=== PATIENT | female | born 1975 | race American Indian/Alaskan Native ===

== ENCOUNTER 2018-06-28 07:40 | Emergency (ER) | payer MEDICAID, OTHER ==
[2018-06-28 07:46] VITALS: BMI 32.5
[2018-06-28] MEDS ORDERED: Sodium Chloride 0.9% 1,000 ML IV STA (08:13)
[2018-06-28 08:49] LABS: EOS % 0.3 % (0.0-4.0); RED CELL DISTRIBUTION WIDTH 13.5 % (11.5-14.5); WHITE BLOOD COUNT 3.5 K/uL (4.8-10.8)
[2018-06-28 08:54] LABS: BASO % 0.3 % (0.0-2.0); HEMOGLOBIN 11.7 g/dL (12.0-16.0); LYMPH # 0.6 K/uL (1.0-4.3); LYMPH % 16.4 % (20.0-40.0); MEAN CELL VOLUME 89.3 fl (81.0-99.0); MEAN CORPUSCULAR HEMOGLOBIN 29.3 pg (27.0-31.0); MEAN CORPUSCULAR HGB CONC 32.9 g/dL (33.0-37.0); MEAN PLATELET VOLUME 7.6 fl (7.2-11.7); MONO # 0.3 K/uL (0.0-0.8); NEUT # 2.5 K/uL (1.8-7.0); NRBC % 0.1 % (0.0-0.0)
[2018-06-28 09:12] LABS: ALBUMIN 3.6 g/dL (3.5-5.0); ALT/SGPT 35 U/L (9-52); AST/SGOT 44 U/L (14-36); BLOOD UREA NITROGEN 14 mg/dl (7-17); CALCIUM 9.5 mg/dL (8.4-10.2); GFR NON-AFRICAN AMERICAN > 60
--- NOTE | 2018-06-28 09:19 | ED PDOC ---
HPI: General Adult Time Seen by Provider: 06/28/18 07:47 Chief Complaint (Nursing): Abdominal Pain Chief Complaint (Provider): Headache and Abdominal Pain History Per: Patient History/Exam Limitations: no limitations Onset/Duration Of Symptoms: Days (1) Current Symptoms Are (Timing): Still Present Additional Complaint(s): 43 year old female with history of migraines, asthma and fibromyalgia presents to the ED for an evaluation of headache and abdominal cramping onset yesterday. Patient states she had a couple of soft, non-bloody and dark brown bowel movements. Last night, she had one episode of non-bloody vomit prompting to come to the ED for further evaluation today. The headache is throbbing with light sensitivity across the taoism regions associated with nausea. Otherwise, she denies chest pain, shortness of breath or any urinary symptoms. Patient also re ports [place] Of note: her LNMP was 2 weeks ago; patient states it was heavy as regular. PMD: [facility] Past Medical History Reviewed: Historical Data, Nursing Documentation, Vital Signs Vital Signs: Last Vital Signs Temp 98.7 F 06/28/18 07:46 Pulse 88 06/28/18 07:46 Resp 15 06/28/18 07:46 BP 124/66 06/28/18 07:46 Pulse Ox 96 06/28/18 07:46 - Medical History PMH: Asthma, Fibromyalgia, Migraine - Surgical History Surgical History: No Surg Hx - Family History Family History: States: Unknown Family Hx - Social History Current smoker - smoking cessation education provided: No Alcohol: None Drugs: Denies - Immunization History Hx Tetanus Toxoid Vaccination: No Hx Influenza Vaccination: No Hx Pneumococcal Vaccination: No - Home Medications Home Medications: Ambulatory Orders Medication Instructions Recorded Acetaminophen [Tylenol 325mg tab] 325 mg PO Q6 06/19/18 Albuterol HFA [Ventolin HFA 90 2 puff IH [id number] 06/19/18 mcg/actuation (8 g)] Acetaminophen 650 mg PO Q6H PRN #30 tablet 06/28/18 Ondansetron [Zofran] 4 mg PO Q8H #9 tab 06/28/18 - Allergies Allergies/Adverse Reactions: Allergies Allergy/AdvReac Type Severity Reaction Status Date / Time No Known Allergies Allergy Verified 06/19/18 04:43 Review of Systems ROS Statement: Except As Marked, All Systems Reviewed And Found Negative Constitutional: Negative for: Fever Cardiovascular: Negative for: Chest Pain Respiratory: Negative for: Shortness of Breath Gastrointestinal: Positive for: Nausea, Vomiting, Abdominal Pain, Other (couple of bowel movements) Genitourinary Female: Negative for: Dysuria, Frequency, Incontinence, Hematuria Neurological: Positive for: Headache Physical Exam - Reviewed Nursing Documentation Reviewed: Yes Vital Signs Reviewed: Yes - Physical Exam Appears: Positive for: Well, Non-toxic, No Acute Distress Head Exam: Positive for: ATRAUMATIC, NORMAL INSPECTION, NORMOCEPHALIC Skin: Positive for: Rash (chronic on neck area ) Eye Exam: Positive for: EOMI, Normal appearance, PERRL ENT: Positive for: Normal ENT Inspection, Other (dry tongue ) Neck: Positive for: Normal, Painless ROM, Supple. Negative for: Decreased ROM Cardiovascular/Chest: Positive for: Regular Rate, Rhythm. Negative for: Murmur Respiratory: Positive for: Normal Breath Sounds. Negative for: Respiratory Distress Gastrointestinal/Abdominal: Positive for: Tenderness (upper region ). Negative for: Distended, Rebound Back: Positive for: Normal Inspection Extremity: Positive for: Normal ROM. Negative for: Tenderness, Pedal Edema, Deformity Neurological/Psych: Positive for: Awake, Alert, Normal Tone, Oriented (x3) - Laboratory Results Result Diagrams: 06/28/18 08:44 06/28/18 08:44 Lab Results: Total Bilirubin 0.8 mg/dl (0.2-1.3) 06/28/18 08:44 AST 44 U/L (14-36) H 06/28/18 08:44 ALT 35 U/L (9-52) 06/28/18 08:44 Alkaline Phosphatase 75 U/L (38-126) 06/28/18 08:44 Total Protein 7.2 G/DL (6.3-8.2) 06/28/18 08:44 Albumin 3.6 g/dL (3.5-5.0) 06/28/18 08:44 Globulin 3.6 gm/dL (2.2-3.9) 06/28/18 08:44 Albumin/Globulin Ratio 1.0 (1.0-2.1) 06/28/18 08:44 - ECG O2 Sat by Pulse Oximetry: 96 (RA) Pulse Ox Interpretation: Normal - Progress Re-evaluation Time: 09:20 Condition: Re-examined, Improved Medical Decision Making Medical Decision Making: Time: 08:13 Impression: gastroenteritis, headache Plan: CMP ED urine (POC) ED urine dipstick (POC) CBC w/ differential Pepcid 20mg Normal Saline 999 mls/hr Toradol 30mg Zofran 4mg IV Insertion Reevaluation Scribe Attestation: Documented by Michelle Mckinley, acting as a scribe for Bailey Bonilla MD Provider Scribe Attestation: All medical record entries made by the Scribe were at my direction and personally dictated by me. I have reviewed the chart and agree that the record accurately reflects my personal performance of the history, physical exam, medical decision making, and the department course for this patient. I have also personally directed, reviewed, and agree with the discharge instructions and disposition. 9.20a - labs reviewed. Patient states her nausea and headache are both better. Will discharge with rx for ondansetron and acetaminophen Disposition - Clinical Impression Clinical Impression: Gastroenteritis - Patient ED Disposition Is Patient to be Admitted: No Doctor Will See Patient In The: Office Counseled Patient/Family Regarding: Diagnosis, Need For Followup, Rx Given - Disposition [facility]errals: [facility]Outside] [facility] [Outside] [facility] [Outside] Disposition: Routine/Home Disposition Time: 09:30 Condition: IMPROVED Prescriptions: Acetaminophen 650 mg PO Q6H PRN #30 tablet PRN Reason: Pain, Moderate (4-7) Ondansetron [Zofran] 4 mg PO Q8H #9 tab Instructions: Gastroenteritis (ED) Forms: [employer] ([place]) - POA Present On Arrival: None
[2018-06-28 09:59] VITALS: BP 122/66; PULSE 66; RESP 16; TEMP 98.5; O2SAT 100
== END 2018-06-28 09:50 | disposition home or self-care (01) ==
LOC: H.ER 07:40
DX: K52.9 Noninfective gastroenteritis and colitis, unspecified (principal); M79.7 Fibromyalgia
CPT/HCPCS: 80053; 81025; 85025; 96374; 96375; 99284; J1885; J2405; J7030

== ENCOUNTER 2018-06-30 04:12 | Emergency (ER) | payer MEDICAID, OTHER ==
[2018-06-30 04:12] VITALS: BMI 32.5
[2018-06-30 04:38] VITALS: BP 131/68; PULSE 72; RESP 16; TEMP 98.7; O2SAT 100
--- NOTE | 2018-06-30 05:07 | ED PDOC ---
HPI:Nausea, Vomiting, Diarrhea Time Seen by Provider: 06/30/18 04:26 Chief Complaint (Nursing): GI Problem Chief Complaint (Provider): GI Problem History Per: Patient History/Exam Limitations: no limitations Onset/Duration Of Symptoms: Days (x2) Current Symptoms Are (Timing): Still Present Additional Complaint(s): 43 year old, homeless female presents to the emergency department with a complaint of watery diarrhea associated with 1 episode of vomiting for 2 days. She denies any fever, chills, or abdominal pain. Upon entering room, patient was observed sitting on the garbage can making a bowel movement then proceed to make her way to the bed. No further medical complaints offered. PCP: none provided Past Medical History Reviewed: Historical Data, Nursing Documentation, Vital Signs Vital Signs: Last Vital Signs Temp 98.7 F 06/30/18 04:35 Pulse 72 06/30/18 04:35 Resp 16 06/30/18 04:35 BP 131/68 06/30/18 04:35 Pulse Ox 100 06/30/18 04:35 - Medical History PMH: Asthma, Fibromyalgia, Migraine - Family History Family History: States: Unknown Family Hx - Immunization History Hx Tetanus Toxoid Vaccination: No Hx Influenza Vaccination: No Hx Pneumococcal Vaccination: No - Home Medications Home Medications: Ambulatory Orders Medication Instructions Recorded Acetaminophen [Tylenol 325mg tab] 325 mg PO Q6 06/19/18 Albuterol HFA [Ventolin HFA 90 2 puff IH [id number] 06/19/18 mcg/actuation (8 g)] Acetaminophen 650 mg PO Q6H PRN #30 tablet 06/28/18 Ondansetron [Zofran] 4 mg PO Q8H #9 tab 06/28/18 Loperamide [Loperamide HCl] 2 mg PO BID #4 cap 06/30/18 - Allergies Allergies/Adverse Reactions: Allergies Allergy/AdvReac Type Severity Reaction Status Date / Time No Known Allergies Allergy Verified 06/19/18 04:43 Review of Systems ROS Statement: Except As Marked, All Systems Reviewed And Found Negative Constitutional: Negative for: Fever, Chills Gastrointestinal: Positive for: Vomiting, Diarrhea. Negative for: Abdominal Pain Physical Exam - Reviewed Nursing Documentation Reviewed: Yes Vital Signs Reviewed: Yes - Physical Exam Appears: Positive for: Well, Non-toxic, No Acute Distress Head Exam: Positive for: ATRAUMATIC, NORMAL INSPECTION, NORMOCEPHALIC Skin: Positive for: Normal Color Eye Exam: Positive for: Normal appearance ENT: Positive for: Normal ENT Inspection. Negative for: Pharyngeal Erythema Neck: Positive for: Normal Cardiovascular/Chest: Positive for: Regular Rate, Rhythm Respiratory: Positive for: Normal Breath Sounds. Negative for: Respiratory Distress Gastrointestinal/Abdominal: Positive for: Normal Exam, Soft. Negative for: Tenderness Extremity: Positive for: Normal ROM Neurological/Psych: Positive for: Awake, Alert, Normal Tone - ECG O2 Sat by Pulse Oximetry: 100 (RA) Pulse Ox Interpretation: Normal - Progress Re-evaluation Time: 05:20 Condition: Re-examined, Improved Medical Decision Making Medical Decision Making: Time: 0500 Initial Impression: diarrhea Initial Plan: * Imodium PO Scribe Attestation: Documented by Sherri Yi, acting as a scribe for Emmett Manrique MD. Provider Scribe Attestation: All medical record entries made by the Scribe were at my direction and personally dictated by me. I have reviewed the chart and agree that the record accurately reflects my personal performance of the history, physical exam, medical decision making, and the department course for this patient. I have also personally directed, reviewed, and agree with the discharge instructions and disposition. Disposition - Clinical Impression Clinical Impression: Diarrhea - Patient ED Disposition Is Patient to be Admitted: No Doctor Will See Patient In The: Office Counseled Patient/Family Regarding: Studies Performed, Diagnosis, Need For Followup - Disposition Referrals: [facility] [Outside] Disposition: Routine/Home Disposition Time: 05:20 Condition: GOOD Additional Instructions: VIR[place] SEGOVIA, thank you for letting us take care of you today. Your provider was Emmett Manrique MD and you were treated for DIARRHEA. The emergency medical care you received today was directed at your acute symptoms. If you were prescribed any medication, please fill it and take as directed. It may take several days for your symptoms to resolve. Return to the Emergency Department if your symptoms worsen, do not improve, or if you have any other problems. Please contact your doctor or call one of the physicians/clinics you have been referred to that are listed on the Patient Visit Information form that is included in your discharge packet. Bring any paperwork you were given at discharge with you along with any medications you are taking to your follow up visit. Our treatment cannot replace ongoing medical care by a primary care provider outside of the emergency department. Thank you for allowing the [facility] team to be part of your care today. Instructions: Diarrhea in Adolescents and Adults
== END 2018-06-30 05:47 | disposition home or self-care (01) ==
LOC: H.ER 04:12
DX: R19.7 Diarrhea, unspecified (principal); J45.909 Unspecified asthma, uncomplicated; M79.7 Fibromyalgia; Z59.0 Homelessness

== ENCOUNTER 2018-06-30 21:33 | Emergency (ER) | payer MEDICAID, OTHER ==
[2018-06-30 21:33] VITALS: BMI 32.5
[2018-06-30 21:41] VITALS: RESP 18
[2018-06-30] MEDS ORDERED: Atropine-Diphenoxylate 0.025-2.5 mg Tab PO STA (23:29)
[2018-06-30] MEDS ORDERED: Sodium Chloride 0.9% 1,000 ML IV STA (23:31)
--- NOTE | 2018-06-30 23:34 | ED PDOC ---
HPI: Abdomen Time Seen by Provider: 06/30/18 23:11 Chief Complaint (Nursing): GI Problem Chief Complaint (Provider): abd pain History Per: Patient History/Exam Limitations: no limitations Onset/Duration Of Symptoms: Days (3) Associated Symptoms: Chills, Nausea, Vomiting, Diarrhea, Loss Of Appetite, Urinary Symptoms (darker and mild dysuria). denies: Fever Additional Complaint(s): abdominal pain for 3 days worsening since onset developed diarrhea yesterday and continued today nausea and intermittent nonbilious nonbloody vomit poor appetite and PO intake PMD none Past Medical History Reviewed: Historical Data, Nursing Documentation, Vital Signs Vital Signs: Last Vital Signs Temp 98.4 F 06/30/18 21:40 Pulse 80 06/30/18 21:40 Resp 18 06/30/18 21:40 BP 152/90 H 06/30/18 21:40 Pulse Ox 95 06/30/18 21:40 - Medical History PMH: Asthma, Fibromyalgia, Migraine Other PMH: Eczema - Surgical History Surgical History: No Surg Hx - Family History Family History: States: Unknown Family Hx - Living Arrangements Living Arrangements: Other (Undomiciled) - Social History Current smoker - smoking cessation education provided: No Alcohol: None Drugs: Denies - Immunization History Hx Tetanus Toxoid Vaccination: No Hx Influenza Vaccination: No Hx Pneumococcal Vaccination: No - Home Medications Home Medications: Ambulatory Orders Medication Instructions Recorded Acetaminophen [Tylenol 325mg tab] 325 mg PO Q6 06/19/18 Albuterol HFA [Ventolin HFA 90 2 puff IH [id number] 06/19/18 mcg/actuation (8 g)] Acetaminophen 650 mg PO Q6H PRN #30 tablet 06/28/18 Ondansetron [Zofran] 4 mg PO Q8H #9 tab 06/28/18 Loperamide [Loperamide HCl] 2 mg PO BID #4 cap 06/30/18 - Allergies Allergies/Adverse Reactions: Allergies Allergy/AdvReac Type Severity Reaction Status Date / Time No Known Allergies Allergy Verified 06/30/18 21:40 Review of Systems ROS Statement: Except As Marked, All Systems Reviewed And Found Negative (and as per HPI) Constitutional: Positive for: Chills, Weakness, Malaise Gastrointestinal: Positive for: Nausea, Vomiting, Abdominal Pain, Diarrhea. Negative for: Melena, Hematochezia, Hematemesis Physical Exam - Reviewed Nursing Documentation Reviewed: Yes Vital Signs Reviewed: Yes - Physical Exam Appears: Positive for: No Acute Distress (but tired appeaing) Head Exam: Positive for: ATRAUMATIC, NORMOCEPHALIC Skin: Positive for: Warm, Dry Eye Exam: Positive for: EOMI, PERRL ENT: Positive for: Pharynx Is (clear), Other (tacky mucus membranes) Neck: Positive for: Painless ROM, Supple Cardiovascular/Chest: Positive for: Regular Rate, Rhythm. Negative for: Murmur Respiratory: Positive for: Normal Breath Sounds. Negative for: Respiratory Distress Gastrointestinal/Abdominal: Positive for: Soft, Tenderness (diffuse). Negative for: Mass, Distended, Guarding, Rebound Back: Positive for: Normal Inspection. Negative for: Decreased ROM Extremity: Positive for: Normal ROM. Negative for: Deformity Lymphatic: Negative for: Adenopathy Neurological/Psych: Positive for: Other (sleepy). Negative for: Motor/Sensory Deficits - Laboratory Results Result Diagrams: 07/01/18 00:40 07/01/18 00:40 - ECG O2 Sat by Pulse Oximetry: 95 Disposition - Clinical Impression Clinical Impression: Gastroenteritis - Disposition Disposition: Transfer of Care Disposition Time: 00:00 Condition: STABLE Patient Signed Over To: Jose Rizvi Handoff Comments: Pending ER workup, reasessement and final ER disposition
[2018-06-30] MEDS ORDERED: Iohexol 300 100 ML IJ ONE (23:58)
--- NOTE | 2018-07-01 00:16 | ED PDOC ---
- Laboratory Results Result Diagrams: 07/01/18 00:40 07/01/18 00:40 - ECG O2 Sat by Pulse Oximetry: 95 Medical Decision Making Medical Decision Makin:00 Patient signed out to me by Leila Madison MD pending CT imaging and reevalu ation. 00:57 CT abdomen and pelvis with IV contrast only read and reviewed by radiologist COMMENTS: Fluid filled stomach. Fluid filled small bowels. The liver is of uniform attenuation without mass or defect. There is no intra or extrahepatic biliary ductal dilatation. The spleen is normal. The gallbladder is within normal limits. The pancreas is of normal contour and attenuation characteristics. There is no evidence of adrenal mass. Both kidneys demonstrate prompt and equal nephrograms. The kidneys are normal in size, shape and configuration. There is no evidence of renal or ureteral mass. No renal or ureteral calculi are identified. There is no hydroureter or hydr onephrosis. No evidence for appendicitis. No evidence for small or large bowel obstruction. There is no evidence of abdominal ascites or lymphadenopathy. There is no evidence of intrinsic or extrinsic bladder mass. There is no pelvic ascites or lymphadenopathy. Images of the lung bases show no evidence of pleural or parenchymal mass. There are no pleural effusions. The bony structures are free of lytic or blastic lesions. IMPRESSION: Uncomplicated gastroenteritis. 3:25 Upon provider reevaluation patient is feeling better, is medically stable, and requires no further treatment in the ED at this time. Patient will be discharged home. Counseling was provided and all questions were answered regarding diagnosis of gastroenteritis and need for follow up with PMD. There is agreement to discharge plan. Return if symptoms persist or worsen. ScribeAttestation: Documented Nicholas Llanes, acting as a scribe for Jose Rizvi MD. Provider ScribeAttestation: All medical record entries made by the Scribe were at my direction and personally dictated by me. I have reviewed the chart and agree that the record accurately reflects my personal performance of the history, physical exam, medical decision making, and the department course for this patient. I have also personally directed, reviewed, and agree with the discharge instructions and disposition. Disposition - Clinical Impression Clinical Impression: Gastroenteritis - POA Present On Arrival: None - Disposition Disposition: Routine/Home Disposition Time: 03:25 Condition: STABLE Instructions: Viral Gastroenteritis Forms: [employer] ([place])
[2018-07-01] MEDS ORDERED: Atropine-Diphenoxylate 0.025-2.5 mg Tab ONE (00:22)
[2018-07-01 00:44] LABS: BASO % 0.7 % (0.0-2.0); EOS # 0.1 K/uL (0.0-0.7); EOS % 2.9 % (0.0-4.0); HEMOGLOBIN 11.6 g/dL (12.0-16.0); LYMPH # 1.2 K/uL (1.0-4.3); LYMPH % 25.2 % (20.0-40.0); MEAN CELL VOLUME 88.7 fl (81.0-99.0); MEAN CORPUSCULAR HEMOGLOBIN 29.3 pg (27.0-31.0); MEAN PLATELET VOLUME 7.6 fl (7.2-11.7); MONO # 0.7 K/uL (0.0-0.8); MONO % 14.9 % (0.0-10.0); NEUT # 2.6 K/uL (1.8-7.0); NEUT % 56.3 % (50.0-75.0); NRBC % 0.1 % (0.0-0.0); RBC 3.95 Mil/uL (3.80-5.20); RED CELL DISTRIBUTION WIDTH 13.1 % (11.5-14.5); WHITE BLOOD COUNT 4.6 K/uL (4.8-10.8)
[2018-07-01 00:55] LABS: ALBUMIN 3.6 g/dL (3.5-5.0); ALT/SGPT 39 U/L (9-52); AST/SGOT 30 U/L (14-36); BLOOD UREA NITROGEN 13 mg/dl (7-17); CALCIUM 8.2 mg/dL (8.4-10.2); GFR NON-AFRICAN AMERICAN > 60
[2018-07-01 03:59] VITALS: BP 131/84; PULSE 76; TEMP 98.2
[2018-07-01 06:25] VITALS: O2SAT 95
--- NOTE | 2018-07-01 12:07 | CT ---
Date of service: 07/01/2018 PROCEDURE: CT Abdomen and Pelvis with contrast HISTORY: abd pain and diarrhea COMPARISON: Not available TECHNIQUE: Contrast dose: 90 mL Omnipaque 300 Radiation dose: Total exam DLP = 517.46 mGy-cm. This CT exam was performed using one or more of the following dose reduction techniques: Automated exposure control, adjustment of the mA and/or kV according to patient size, and/or use of iterative reconstruction technique. FINDINGS: LOWER THORAX: Unremarkable. LIVER: Unremarkable. No gross lesion or ductal dilatation. GALLBLADDER AND BILE DUCTS: Unremarkable. PANCREAS: Unremarkable. No gross lesion or ductal dilatation. SPLEEN: Unremarkable. ADRENALS: Unremarkable. No mass. KIDNEYS AND URETERS: Unremarkable. No hydronephrosis. No solid mass. VASCULATURE: Unremarkable. No aortic aneurysm. No aortic atherosclerotic calcification or mural plaque present. BOWEL: Very mild gastric antral mural thickening common nonspecific. No evidence of bowel obstruction. No abnormal bowel loops. APPENDIX: Normal appendix. PERITONEUM: Unremarkable. No free fluid. No free air. LYMPH NODES: Unremarkable. No enlarged lymph nodes. BLADDER: Poorly distended REPRODUCTIVE: Uterus significant for multiple masses likely fibroids. BONES: No acute fracture. OTHER FINDINGS: None. IMPRESSION: Multiple uterine fibroids. Very mild circumferential gastric antral mural thickening, nonspecific. No additional abnormality.
== END 2018-07-01 03:58 | disposition home or self-care (01) ==
LOC: H.ER 21:33
DX: K52.9 Noninfective gastroenteritis and colitis, unspecified (principal); J45.909 Unspecified asthma, uncomplicated; M79.7 Fibromyalgia; D25.9 Leiomyoma of uterus, unspecified
CPT/HCPCS: 74177; 80053; 85025; 96374; 96375; 99284; J1885; J2405; J7030; Q9967